=== PATIENT | male | born 1985 | race Caucasian/White ===

== ENCOUNTER 2017-10-17 19:07 | Emergency (ER) | payer OTHER ==
[2017-10-17 19:15] VITALS: BP 119/81
--- NOTE | 2017-10-17 19:37 | ED ---
Throat Pain/Nasal Congestion - HPI Summary HPI Summary: 31 y/o male here c/o sore throat and dysphonia for the last 7 days. Patient reports that he is getting better but since he has an interview for a job on Thursday he wants to make due he has no strep pharyngitis. He also is c/o insomnia secondary to stress. He has Hx of anxiety. Denies any drooling. or difficulty swallowing. Denies any fever or chills. - History of Current Complaint Chief Complaint: UCRespiratory Time Seen by Provider: 10/17/17 19:23 Hx Obtained From: Patient Onset/Duration: Gradual Onset, Lasting Days Severity: Mild Associated Signs And Symptoms: Positive: Negative - Epiglottits Risk Factors Epiglottis Risk Factors: Negative - Allergies/Home Medications Allergies/Adverse Reactions: Allergies Allergy/AdvReac Type Severity Reaction Status Date / Time No Known Allergies Allergy Verified 10/17/17 19:15 PMH/Surg Hx/FS Hx/Imm Hx Endocrine/Hematology History: Denies: Hx Diabetes Cardiovascular History: Denies: Hx Hypertension, Hx Pacemaker/ICD History: Denies: Hx Renal Disease Sensory History: Denies: Hx Hearing Aid Psychiatric History: Denies: Hx Panic Disorder Infectious Disease History: No Infectious Disease History: Denies: Traveled Outside the [place] in Last 30 Days - Social History Alcohol Use: Occasionally Substance Use Type: Reports: None Smoking Status (MU): Never Smoked Tobacco Review of Systems Constitutional: Negative Eyes: Negative Positive: Sore Throat Cardiovascular: Negative Respiratory: Negative Gastrointestinal: Negative Genitourinary: Negative Musculoskeletal: Negative Skin: Negative Neurological: Negative Positive: Anxious All Other Systems Reviewed And Are Negative: Yes Physical Exam - Summary Physical Exam Summary: VITAL SIGNS: Reviewed. GENERAL: Patient is a well developed and nourished male who is sitting comfortable in the stretcher. Patient is not in any acute respiratory distress. HEAD AND FACE: Normacephalic and atraumatic. EYES: PERRLA, EOMI x 2, EARS: Hearing grossly intact. MOUTH: Oropharynx within normal limits. NECK: Supple, trachea is midline, no adenopathy, no JVD, no carotid bruit, no c- spine tenderness, neck with full ROM. CHEST: Symmetric, no tenderness at palpation LUNGS: CTA B/L. No wheezing or crackles. CVS: RRR, S1 and S2 present, no murmurs or gallops appreciated. ABDOMEN: Soft, NT, No distention. Normal BS. EXTREMITIES: FROM in all major joints, no edema, no cyanosis or clubbing. NEURO: Alert and oriented x 3. No acute neurological deficits. Speech is normal and follows commands. SKIN: Dry and warm Triage Information Reviewed: Yes Vital Signs On Initial Exam: Initial Vitals Temp Pulse Resp BP Pulse Ox 98.9 F 56 12 119/81 100 10/17/17 19:13 10/17/17 19:13 10/17/17 19:13 10/17/17 19:13 10/17/17 19:13 Vital Signs Reviewed: Yes Diagnostics - Vital Signs Vital Signs Temp Pulse Resp BP Pulse Ox 10/17/17 19:13 98.9 F 56 12 119/81 100 - Laboratory Lab Statement: Any lab studies that have been ordered have been reviewed, and results considered in the medical decision making process. EENT Course/Dx - Course Assessment/Plan: Rapid strep is: negative. Patient has no pharyngeal erythema. Thus, no need for antibiotics. I have nos suspicion for epiglottitis since patient is drooling and he is able to take medication w/o any distress. Physical exam did not reveal a retropharyngeal abscess. He will be given a prescription for klonopin for 3 days. He will f/u with PCP in the next couple days. If symptoms worsen will return to the UC or ED immediately. Patient is hemodynamically stable and A+O x 3. Before discharge he drank a bottle of water and he was encourage to hydrate himself well. - Diagnoses Provider Diagnoses: Viral pharyngitis, Anxiety Discharge - Sign-Out/Discharge Documenting (check all that apply): Discharge/Admit/Transfer - Discharge Plan Condition: Stable Disposition: HOME Prescriptions: clonazePAM TAB(*) [KlonoPIN TAB(*)] 0.5 mg PO BID PRN #6 tab MDD 2 tabs PRN Reason: Anxiety Patient Education Materials: Pharyngitis (ED), Anxiety (ED) Referrals: Shagufta Rodriguez DO [Primary Care Provider] - Additional Instructions: Take medications as instructed Increase your fluid intake Return to the UC if symptoms worsen - Billing Disposition and Condition Condition: STABLE Disposition: HOME
== END 2017-10-17 19:51 | disposition home or self-care (01) ==
LOC: UCEAST 19:07
DX: J02.8 Acute pharyngitis due to other specified organisms (principal); F41.9 Anxiety disorder, unspecified
CPT/HCPCS: 87651; 99212; G0463

== ENCOUNTER 2018-09-01 18:38 | Emergency (ER) | payer OTHER ==
[2018-09-01 18:58] VITALS: BP 107/69
--- NOTE | 2018-09-01 20:02 | UC ---
General HPI - HPI Summary HPI Summary: Mr. Guillory has a long history of insomnia and [place]. He realized that his problem would likely be exacerbated by the travel lag and came in for some Klonopin which he had good success with once before. - History of Current Complaint Chief Complaint: UCMedRefill Stated Complaint: TROUBLE SLEEPING Time Seen by Provider: 09/01/18 19:46 Pain Intensity: 0 - Allergy/Home Medications Allergies/Adverse Reactions: Allergies Allergy/AdvReac Type Severity Reaction Status Date / Time No Known Allergies Allergy Verified 10/17/17 19:15 PMH/Surg Hx/FS Hx/Imm Hx Previously Healthy: Yes - Surgical History Surgical History: None - Social History Alcohol Use: Occasionally Substance Use Type: None Smoking Status (MU): Never Smoked Tobacco Review of Systems All Other Systems Reviewed And Are Negative: Yes Physical Exam - Summary Physical Exam Summary: Nontoxic in appearance with stable vitals Triage Information Reviewed: Yes Appearance: Well-Appearing Vital Signs: Initial Vital Signs Temp 98.0 F 09/01/18 18:54 Pulse 52 09/01/18 18:54 Resp 18 09/01/18 18:54 BP 107/69 09/01/18 18:54 Pulse Ox 100 09/01/18 18:54 Vital Signs Reviewed: Yes ENT Exam: Normal Neck exam: Normal Respiratory Exam: Normal Cardiovascular Exam: Normal Abdominal Exam: Normal Neurological Exam: Normal Psychological Exam: Normal Course/Dx - Course Course Of Treatment: I wrote for a low transient dose of Konopin to help him out. I checked the i- stop and gave him UpToDate instructions on time-zone travel. - Diagnoses Provider Diagnosis: Insomnia Discharge - Sign-Out/Discharge Documenting (check all that apply): Patient Departure All imaging exams completed and their final reports reviewed: No Studies - Discharge Plan Condition: Stable Disposition: HOME Prescriptions: clonazePAM TAB(*) [Klonopin TAB(*)] 0.5 mg PO BEDTIME PRN #10 tab MDD 2 PRN Reason: Insomnia Patient Education Materials: Insomnia (ED) Referrals: Shagufta Rodriguez DO [Primary Care Provider] - Additional Instructions: Please refer to the UpToDate Jet [employer] instructions attached. - Billing Disposition and Condition Condition: STABLE Disposition: Home
== END 2018-09-01 20:00 | disposition home or self-care (01) ==
LOC: UCEAST 18:38
DX: G47.00 Insomnia, unspecified (principal)
CPT/HCPCS: 99212; G0463

== ENCOUNTER 2019-06-13 18:59 | Emergency (ER) | payer SELFPAY ==
[2019-06-13] MEDS ORDERED: Tetan/Diph/Pertus SYR(Tdap)* 0.5 ML SYR(BOOSTRIX) use SYR contains LATEX IM ONE (19:22)
[2019-06-13] MEDS ORDERED: ceFAZolin 1 GM ADVAN(*) 1 GM in NS 0.9% 50 ML* 50 ML IVPB ONE (19:23)
--- NOTE | 2019-06-13 19:28 | ED ---
Laceration/Wound HPI - HPI Summary HPI Summary: 33 year old male presents with laceration to left knee today. He states that he ended tripping and falling on his left knee. He states that he was in a lot of pain when he tried to put weight on it. He states he still able to bend it. He is unsure his last tetanus is. Denies any medical conditions. No numbness or tingling. No previous fractures to the the area. He states that his patella feels off. - History of Current Complaint Stated Complaint: BROKEN LEFT KNEE PER PT Time Seen by Provider: 06/13/19 19:15 Pain Intensity: 6 - Allergy/Home Medications Allergies/Adverse Reactions: Allergies Allergy/AdvReac Type Severity Reaction Status Date / Time No Known Allergies Allergy Verified 06/13/19 19:10 PMH/Surg Hx/FS Hx/Imm Hx Endocrine/Hematology History: Denies: Hx Diabetes Cardiovascular History: Denies: Hx Hypertension, Hx Pacemaker/ICD History: Denies: Hx Renal Disease Sensory History: Denies: Hx Hearing Aid Psychiatric History: Denies: Hx Panic Disorder Infectious Disease History: No Infectious Disease History: Denies: Traveled Outside the [place] in Last 30 Days - Family History Known Family History: Positive: Non-Contributory - Social History Alcohol Use: Occasionally Substance Use Type: Reports: None Smoking Status (MU): Never Smoked Tobacco Review of Systems Negative: Fever Negative: Chest Pain Negative: Shortness Of Breath Positive: Other - laceration left knee All Other Systems Reviewed And Are Negative: Yes Physical Exam Triage Information Reviewed: Yes Vital Signs On Initial Exam: Initial Vitals Temp Pulse Resp BP Pulse Ox 98.2 F 80 19 123/67 96 06/13/19 19:08 06/13/19 19:08 06/13/19 19:08 06/13/19 19:08 06/13/19 19:08 Vital Signs Reviewed: Yes Appearance: Positive: Well-Appearing Skin: Positive: Warm, Dry, Other - 7cm by 2cm by 1cm laceration over left patella extends medially Head/Face: Positive: Normal Head/Face Inspection Eyes: Positive: Normal, Conjunctiva Clear ENT: Positive: Pharynx normal Respiratory/Lung Sounds: Positive: Clear to Auscultation, Breath Sounds Present Cardiovascular: Positive: Normal, RRR Musculoskeletal: Positive: Other - good pulses Neurological: Positive: Normal Psychiatric: Positive: Normal Procedures - Sedation Patient Received Moderate/Deep Sedation with Procedure: No - Laceration/Wound Repair 1 Location: Other - left knee Length, Depth and Shape: 7cm by 2cm Irrigated w/ Saline (ccs): 2,000 Closure: Multilayer Suture Type: Prolene, Vicryl Number of Sutures: 14 Layer Closure?: Yes - 11 superificial and 4 deep Diagnostics - Vital Signs Vital Signs Temp Pulse Resp BP Pulse Ox 06/13/19 19:08 98.2 F 80 19 123/67 96 - Laboratory Lab Statement: Any lab studies that have been ordered have been reviewed, and results considered in the medical decision making process. - Radiology knee Radiology Interpretation Completed By: ED Physician Summary of Radiographic Findings: avulsion fracture patella Re-Evaluation - Re-Evaluation First Eval Re-Evaluation Time: 20:51 Comment: does not want numb meds until given something to relax Laceration Repair Course/Dx - Course Course Of Treatment: 33 year old male presents with laceration to left knee today. He states that he ended tripping and falling on his left knee. He states that he was in a lot of pain when he tried to put weight on it. He states he still able to bend it. He is unsure his last tetanus is. Denies any medical conditions. No numbness or tingling. No previous fractures to the the area. He states that his patella feels off. On exam has 7cm by 2cm laceration over patella that extends medially noted to left knee. Neuovascular intact. able to bend and extend knee. gave dose of ancef. discussed with dr guzman who says can close in ED, needs extensive irritation and IV antibiotics and follow up tomorrow. placed 11 sutures superficial and [address] on keflex. gave knee immbolizer and crutches. told follow up with ortho tomorrow. patient understand and agrees with plan. - Differential Dx Differental Diagnoses: Fracture, Laceration, Other - tendon rupture - Clinical Impression Provider Diagnoses: Laceration of left knee, Open fracture of left patella - Physician Notifications Discussed Care Of Patient With: Jacky Guzman Time Discussed With Above Provider: 20:10 - irritate area extensively and close and have follow up tomorrow Discharge ED - Sign-Out/Discharge Documenting (check all that apply): Patient Departure - Discharge Plan Condition: Good Disposition: HOME Prescriptions: Cephalexin CAP* [Keflex CAP*] 500 mg PO BID #14 cap HYDROcodone/ACETAMIN 5-325 MG* [[place] 5-325 TAB*] 1 tab PO Q6H PRN #12 tab MDD 4 PRN Reason: Pain - Severe Patient Education Materials: Care For Your Stitches (ED), Patellar Fracture (ED ) Referrals: Shagufta Rodriguez DO [Doctor of Osteopathy] - Jacky Guzman MD [Medical Doctor] - Additional Instructions: take Keflex twice a day for 7 days Take Tylenol or ibuprofen for pain every 6 hours as needed, use norco for break through pain every 6 hours ice, elevate follow up with ortho tomorrow keep in knee immobilizer change dressing daily Return to ED or primary in 8-10 days to have sutures removed Return to ED if develop signs of infection such as fever, spreading redness, or pus. - Billing Disposition and Condition Condition: GOOD Disposition: Home
[2019-06-13] MEDS ORDERED: Lidocaine 2% w/ EPI 1:200,000* 20 ML SDV VIAL INJ ONE (19:45)
[2019-06-13] MEDS ORDERED: Morphine INJ* 2 MG/ML 1 ML SYRINGE (TWO MG - NEW SYRINGE VERSION) IV ONE (20:24)
[2019-06-13] MEDS ORDERED: Diazepam TAB(*) 5 MG PO ONE (20:50)
[2019-06-13] MEDS ORDERED: Ketorolac INJ* 30 MG/ML 1 ML VIAL IV PUSH ONE (21:20)
[2019-06-13 22:50] VITALS: BP 103/68
== END 2019-06-13 22:49 | disposition home or self-care (01) ==
LOC: ED 18:59
DX: S82.002B Unspecified fracture of left patella, initial encounter for open fracture type I or II (principal); W01.0XXA Fall on same level from slipping, tripping and stumbling without subsequent striking against object, initial encounter; Y92.9 Unspecified place or not applicable
CPT/HCPCS: 90715; 99282; A9270-GY; J0690; J1885